=== PATIENT | male | born 1955 | race African-American/Black ===

== ENCOUNTER 2017-11-07 10:37 | Emergency (ER) | payer MEDICAID, OTHER ==
[~2017-11-07] VITALS: Ht 172.7 cm; Wt 95.0 kg
[~2017-11-07 10:37] MED LIST: BENI40TA30; HYDR-3133 PO; HYDR10TA16; LOTR5CAP3; PRED50TA PO
[2017-11-07 10:45] VITALS: BP 171/85; PULSE 84; RESP 16; TEMP 98.5; O2SAT 98
[2017-11-07] MEDS ORDERED: HYDR-3583 PO (12:13)
[2017-11-07] MEDS ORDERED: LOTR5CAP3 PO (12:13)
[2017-11-07] MEDS ORDERED: ACETAMINOPHEN 325 MG TAB PO ONE (12:30)
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
== END 2017-11-07 14:24 | disposition home or self-care (01) ==
LOC: NEPD 10:37
DX: S06.0X1A Concussion with loss of consciousness of 30 minutes or less, initial encounter (principal); S80.12XA Contusion of left lower leg, initial encounter; Y08.02XA Assault by strike by baseball bat, initial encounter; Y92.009 Unspecified place in unspecified non-institutional (private) residence as the place of occurrence of the external cause
CPT/HCPCS: 70450; 99283